=== PATIENT | male | born 1965 | race Caucasian/White ===

== ENCOUNTER 2019-01-16 16:24 | Emergency (ER) | payer OTHER ==
[~2019-01-16] VITALS: Ht 185.4 cm; Wt 131.5 kg
[2019-01-16] MEDS ORDERED: [UNRECOGNIZED DRUG - REMARK] (16:32)
[2019-01-16] MEDS ORDERED: FORTAMET1000 MG (16:32)
== END 2019-01-16 19:52 | disposition home or self-care (01) ==
LOC: ER 16:24
DX: S01.82XA Laceration with foreign body of other part of head, initial encounter (principal); W06.XXXA Fall from bed, initial encounter; Y93.84 Activity, sleeping; Y92.013 Bedroom of single-family (private) house as the place of occurrence of the external cause; Y99.8 Other external cause status

== ENCOUNTER 2019-01-30 11:39 | Emergency (ER) | payer OTHER ==
[~2019-01-30] VITALS: Ht 185.4 cm; Wt 131.5 kg
[~2019-01-30 11:39] MED LIST: FORTAMET1000 MG; [UNRECOGNIZED DRUG - REMARK]
[2019-01-30] MEDS ORDERED: VASOTEC10 MG PO (12:26)
[2019-01-30] MEDS ORDERED: METFORMIN HCL1000 M2 PO (12:26)
== END 2019-01-30 13:00 | disposition home or self-care (01) ==
LOC: ER
DX: Z48.02 Encounter for removal of sutures (principal)

== ENCOUNTER 2019-10-11 07:36 | Emergency (ER) | payer OTHER ==
[~2019-10-11] VITALS: Ht 185.4 cm; Wt 131.5 kg
[~2019-10-11 07:36] MED LIST changes: +METFORMIN HCL1000 M2 PO; +VASOTEC10 MG PO
[2019-10-11] MEDS ORDERED: VERAPAMIL ER100 MG PO (07:53)
[2019-10-11] MEDS ORDERED: ULTRAM50 MG PO (11:25)
== END 2019-10-11 11:47 | disposition home or self-care (01) ==
LOC: ER 07:36
DX: S20.212A Contusion of left front wall of thorax, initial encounter (principal); S20.222A Contusion of left back wall of thorax, initial encounter; V49.9XXA Car occupant (driver) (passenger) injured in unspecified traffic accident, initial encounter; Y93.89 Activity, other specified; Y92.488 Other paved roadways as the place of occurrence of the external cause; Y99.8 Other external cause status